=== PATIENT | male | born 1940 | race Caucasian/White ===

== ENCOUNTER 2020-08-19 11:09 | Observation (INO) | payer OTHER, SELFPAY ==
[2020-08-19] VITALS (14 sets, daily range): BP systolic 84–142; BP diastolic 49–87; PULSE 65–103; RESP 18–24; TEMP 36.2–38.8; O2SAT 95–99; BMI 21.2
--- NOTE | ~2020-08-19 | XR_ITS ---
EXAMINATION: XR chest 1V portable DATE: 08/19/2020 12:48 INDICATION: One week of fever and weakness. TECHNIQUE: frontal view of the chest was obtained. COMPARISON: None FINDINGS: There are few bilateral scattered calcified pulmonary nodules consistent with old granulomatous disea se. Mild reticular opacities at the bilateral lung bases. No pleural effusion or pneumothorax. Cardia c mediastinal silhouette is within normal limits for AP technique. Moderate to severe degenerative sk eletal changes in the spine and at both shoulders. IMPRESSION: 1. Mild reticular opacities at the bilateral lung bases which could represent atelectasis, mild pulmo nary edema or pneumonia. Reviewed, dictated and finalized at location A. PAPER WRITER IMPRESSION: 1. Mild reticular opacities at the bilateral lung bases which could represent a telectasis, mild pulmonary edema or pneumonia.
--- NOTE | 2020-08-19 11:21 | ECG_ITS ---
Measurements Intervals [place] Rate: 75 P: 64 GA: 140 QRS: 8 QRSD: 101 T: 33 QT: 388 QTc: 435 Interpretive Statements SINUS RHYTHM BASELINE ARTIFACT- I, II, AVR, AVF, V3-V4 NORMAL ECG Electronically Signed On 08-19-2020 13:47:12 NOTE TELLER by Perry Garcia D.O.
[2020-08-19 11:33] LABS: Basophils Percent Auto 0.1 % (0.2-1.2); Hematocrit 41.8 % (42.0-52.0); Hemoglobin 14.2 g/dL (14.0-18.0); Immature Granulocyte Absolute 0.05 K/mm3 (0.00-0.031); Immature Granulocyte Percent A 0.5 % (0-0.5); Lymphocytes Absolute Auto 1.49 K/mm3 (0.9-3.2); Lymphocytes Percent Auto 15.8 % (18.3-44.2); Mean Corpuscular Volume 94.1 fl (80-100); Mean Platelet Volume 10.8 fl (7.4-10.4); Monocytes Absolute Auto 0.5 K/mm3 (0.1-0.6); Monocytes Percent Auto 5.2 % (2.6-8.5); Neutrophils Absolute Auto 7.4 K/mm3 (1.3-6.7); Neutrophils Percent Auto 78.4 % (45.5-73.1); Platelet Count Result 267 k/mm3 (150-375); Red Blood Count 4.44 M/mm3 (4.6-6.20); Red Cell Distribution Width 12.9 % (11.5-14.5); White Blood Count 9.4 K/mm3 (4.5-10.0)
[2020-08-19 11:47] LABS: Alanine Aminotransferase 30 U/L (4-50); Albumin Level 3.7 g/dL (3.5-5.1); Alkaline Phosphatase 73 U/L (38-126); Anion Gap 10 mmol/L (8-16); Aspartate Amino Transferase 50 U/L (17-59); Bilirubin,Total 0.8 mg/dL (0.2-1.3); Blood Urea Nitrogen 19 mg/dL (9-20); Calcium 8.4 mg/dL (8.4-10.2); Carbon Dioxide 27 mmol/L (22-30); Chloride 95 mmol/L (98-107); Estimated CRCL calculation 52 ml/min; Estimated Glomerular Filt Rate > 60; Glucose 109 mg/dL (75-110); Potassium 4.1 mmol/L (3.4-5.0); Sodium 132 mmol/L (137-145)
[2020-08-19] MEDS: SODIUM CHLORIDE 0.9% IV 1,000 ML 999 ML IV CONT (13:09)
--- NOTE | 2020-08-19 13:18 | PC.NURSE ---
Patient's POA updated by phone at this time. Patient gave permission for this RN to speak with her and inform her of current situation.
[2020-08-19 13:26] LABS: NT Pro B Type Natriuretic Pept 405 PG/ML (5-100)
--- NOTE | 2020-08-19 14:50 | ED.WEAKNESS ---
HPI - Weakness General Chief complaint: Weakness Stated complaint: weakness x5 days, COVID PUI Time Seen by Provider: 08/19/20 12:03 History of Present Illness HPI Narrative: Patient is an 80-year-old male who presents ER with weakness and fatigue. Worsening over the last week. Started having fevers over the last couple days. Yesterday he went to receive a Covid test. No known Covid contacts. Unsure how he became ill. Denies runny nose/sore throat/productive cough. No exertional dyspnea. No alleviating factors. Lives at home by himself. Reports last night when he got out of bed he became very dizzy and lightheaded. Related Data Allergies Allergy/AdvReac Type Severity Reaction Status Date / Time No Known Allergies Allergy Mild Verified 08/19/20 11:18 Review of Systems Review of Systems: All systems reviewed & are unremarkable except as noted in HPI and below Constitutional: Constitutional: Reports chills, Reports fatigue, Reports fever(s) and Reports weakness ENT: Denies nasal congestion and Denies sore throat Cardiovascular: Cardiovascular: Denies chest pain and Denies radiating jaw, neck or arm pain Respiratory: Respiratory: Denies cough, Denies dyspnea and Denies wheezing Gastrointestinal: Gastrointestinal: Denies abdominal pain, Denies nausea and Denies vomiting Neurologic: Reports dizziness, Denies syncope, Denies focal weakness and Denies numbness PMFSH Past Medical History Medical History (Updated 08/21/20 @ 03:15 by Chuy Reynolds MD) Anxiety disorder, unspecified Chronic kidney disease (CKD), stage III (moderate) Diverticulosis of large intestine without perforation or abscess Essential (primary) hypertension Herpes zoster without complication Hyperlipidemia LDL goal <100 Insomnia Surgical History Surgical History H/O hernia repair Family History Family History Mother Family history of Alzheimer's disease Father Family history of renal cell carcinoma Acute myocardial infarction Social History Social History (Updated 08/19/20 @ 23:24 by Regina Dow DO) Social History: Lives independently Smoking status: Never smoker Second hand tobacco smoke exposure: No Smoking end date: 01/01/07 Alcohol intake: never Substance use: never Living arrangements: alone Occupation/Education: retired Additional occupation/education comments: From [employer] Gender identity (if verbalized by the patient): Male Sexual Orientation (if Verbalized by the Patient): Straight or Heterosexual Spiritual care concerns: No Exam Narrative: Exam Narrative: GENERAL: Well-appearing, well-nourished, and in no acute distress. HEAD: Normocephalic, atraumatic. CHEST: Clear to auscultation. No respiratory distress. HEART: Regular rate and rhythm. Normal peripheral pulses. ABDOMEN: Soft, nontender, nondistended. EXTREMITIES: Normal range of motion. No edema. SKIN: Warm, dry, no rash. NEURO: Alert and oriented x3. PSYCH: Normal mood and affect. Course Vital Signs Vital signs: Vital Signs Temperature 99.0 F 08/19/20 11:11 Pulse Rate 75 08/19/20 11:11 Respiratory Rate 24 H 08/19/20 11:11 Pulse Oximetry 98 08/19/20 11:11 Temperature 98.4 F 08/20/20 12:00 Pulse Rate 67 08/20/20 12:00 Respiratory Rate 20 08/20/20 12:00 Blood Pressure 105/47 L 08/20/20 12:00 Pulse Oximetry 94 08/20/20 12:00 MDM - Weakness Lab Data Result diagrams: 08/20/20 06:27 08/20/20 06:27 Labs: Lab Results 08/19/20 08/19/20 08/19/20 Range/Units 11:24 11:24 11:24 WBC 9.4 (4.5-10.0) K/mm3 RBC 4.44 L (4.6-6.20) M/mm3 Hgb 14.2 (14.0-18.0) g/dL Hct 41.8 L (42.0-52.0) % MCV 94.1 (80-100) fl MCH 32.0 (26-34) pg MCHC 34.0 (32-36) g/dl RDW 12.9 (11.5-14.5) % Plt Coun
[2020-08-19] MEDS: SODIUM CHLORIDE 0.9% IV 500 ML 999 ML IV CONT (15:27)
--- NOTE | 2020-08-19 18:02 | PC.NURSE ---
This patient, Rashel Polk, was admitted to [facility] Surg Room 314-01. Patient/family oriented to hospital policies and general routines including ID bracelet, bed and alarms, visiting hours, pain management, procedures, bathroom and other care routines, personal items, smoking policy, room service/diet, and visiting hours. Information on how to activate the Rapid Response Team has been discussed. Patient/Family are encouraged to report perceived risks to care and to ask questions if they do not understand what they are told or what they should do.
--- NOTE | 2020-08-19 20:42 | PM.IMHP ---
H&P: HPI History of Present Illness Date/Time: 08/19/20 20:42 Chief complaint: dehydration, COVID PUI, orthostasis Narrative: Rashel Polk is a 80 year old male with past medical history of hypertension, hyperlipidemia, hypothyroidism, insomnia, osteoarthritis presents the ED with complaints of fatigue. Symptom onset was a week ago with gradual progression. He started developing fevers a few days ago with rigors and chills, and now cough with sputum production. Patient had COVID test 08/18/2020 and does not know result. He is very independent, lives alone. He states he has been constipated over last couple days since he has not been eating much. He has nocturia which is regular for him. He denies any skin lesions. He has no sick contacts. No recent travels. Denies history of pneumonias. He did not take anything for his symptoms. Smoked cigarettes a little bit as a teenager many years ago. In the ED: Chest x-ray showed mild reticular opacities bibasilar atelectasis versus pneumonia. EKG showed normal sinus rhythm rate 75. Patient was little tachypneic otherwise vitals stable. Patient admitted to observation for pneumonia. Review of Systems Review of Systems: Narrative: Constitutional: Endorses fevers, chills, rigors. ENT/Mouth: No Hearing Changes, No Ear Pain, No Sinus Pain, No Hoarseness, No sore throat, No Rhinorrhea, No Swallowing Difficulty. Endorses nasal congestion Eyes: No Eye Pain, No Redness, No Vision Changes Cardiovascular: No Chest Pain, No Palpitations, No Dyspnea on Exertion, No Orthopnea, No Claudication, No Edema Respiratory: No Cough, No Sputum, No Wheezing, No Shortness of Breath Gastrointestinal: No Nausea, No Vomiting, No Diarrhea, No Abdominal Pain, No Heartburn, No Hematochezia, No Melena. Endorses constipation Genitourinary: No Dysuria, No Hematuria, No Urinary Incontinence. Endorses chronic nocturia. Musculoskeletal: No Arthralgias, No Myalgias, No Joint Swelling, No Joint Stiffness, No Back Pain Skin: No Skin Lesions, No Pruritis, No Hair Changes Neuro: No Weakness, No Numbness, No Paresthesias, No Loss of Consciousness, No Syncope, No Dizziness, No Headache Psych: No Anxiety/Panic, No Depression, endorses insomnia. Heme: No Bruising, No Bleeding Lymph: No Adenopathy Endocrine: No Polyuria, No Polydipsia, No Temperature Intolerance PMF Past Medical History Medical History (Updated 08/19/20 @ 23:24 by Regina Dow DO) Anxiety disorder, unspecified Chronic kidney disease (CKD), stage III (moderate) Diverticulosis of large intestine without perforation or abscess Essential (primary) hypertension Herpes zoster without complication Hyperlipidemia LDL goal <100 Insomnia Surgical History Surgical History H/O hernia repair Family History Family History Mother Family history of Alzheimer's disease Father Family history of renal cell carcinoma Acute myocardial infarction Social History Social History (Updated 08/19/20 @ 23:24 by Regina Dow DO) Social History: Lives independently Smoking status: Never smoker Second hand tobacco smoke exposure: No Smoking end date: 09/08/06 Alcohol intake: never Substance use: never Living arrangements: alone Occupation/Education: retired Additional occupation/education comments: From [employer] Gender identity (if verbalized by the patient): Male Sexual Orientation (if Verbalized by the Patient): Straight or Heterosexual Spiritual care concerns: No Meds Home Medications and Allergies Home Medications Medication Instructions Recorded Confirmed Type amlodipine 10 mg tablet 10 mg PO DAILY #90 tablet 10/19/19 08/19/20 Rx simvastatin 20 mg tablet 20 mg PO DAILY #90 tablet 02/23/20 08/19/20 Rx metoprolol tartrate 25 mg tablet 25 mg PO BID #180 tablet 03/29/20
[2020-08-19] MEDS: SODIUM CHLORIDE 0.9% IV 1,000 ML 125 ML IV CONT (21:11)
[2020-08-20] VITALS: BP 161/70; PULSE 93; RESP 20; TEMP 36.9; O2SAT 96
[2020-08-20 04:00] VITALS: BP 137/60; PULSE 81; RESP 18; TEMP 37.1; O2SAT 95
[2020-08-20 06:38] LABS: Basophils Percent Auto 0.1 % (0.2-1.2); Hematocrit 36.9 % (42.0-52.0); Hemoglobin 12.7 g/dL (14.0-18.0); Immature Granulocyte Absolute 0.04 K/mm3 (0.00-0.031); Immature Granulocyte Percent A 0.5 % (0-0.5); Lymphocytes Absolute Auto 1.04 K/mm3 (0.9-3.2); Lymphocytes Percent Auto 12.4 % (18.3-44.2); Mean Corpuscular HGB Conc 34.4 g/dl (32-36); Mean Corpuscular Hemoglobin 32.5 pg (26-34); Mean Corpuscular Volume 94.4 fl (80-100); Mean Platelet Volume 10.3 fl (7.4-10.4); Monocytes Absolute Auto 0.4 K/mm3 (0.1-0.6); Monocytes Percent Auto 4.4 % (2.6-8.5); Neutrophils Absolute Auto 6.9 K/mm3 (1.3-6.7); Neutrophils Percent Auto 82.6 % (45.5-73.1); Platelet Count Result 304 k/mm3 (150-375); Red Blood Count 3.91 M/mm3 (4.6-6.20); Red Cell Distribution Width 12.9 % (11.5-14.5); White Blood Count 8.4 K/mm3 (4.5-10.0)
[2020-08-20 07:01] LABS: Anion Gap 8 mmol/L (8-16); Blood Urea Nitrogen 14 mg/dL (9-20); Calcium 7.8 mg/dL (8.4-10.2); Carbon Dioxide 25 mmol/L (22-30); Chloride 100 mmol/L (98-107); Estimated CRCL calculation 63 ml/min; Estimated Glomerular Filt Rate > 60; Glucose 100 mg/dL (75-110); Magnesium 2.1 mg/dL (1.6-2.3); Potassium 3.8 mmol/L (3.4-5.0); Sodium 133 mmol/L (137-145)
[2020-08-20] MEDS: LEVOTHYROXINE SODIUM 50 MCG TABLET PO (07:46)
[2020-08-20 08:00] VITALS: BP 103/48; PULSE 80; RESP 16; TEMP 37.2; O2SAT 95
[2020-08-20] MEDS: SIMVASTATIN 20 MG TABLET PO (09:13)
[2020-08-20] MEDS: MELOXICAM 7.5 MG TABLET 15 MG PO (09:13)
[2020-08-20] MEDS: amLODIPine BESYLATE 5 MG TABLET 10 MG PO (09:13)
[2020-08-20] MEDS: ENOXAPARIN 40 MG/0.4 ML SYRINGE SUB-Q (09:13)
[2020-08-20] MEDS: SODIUM CHLORIDE 0.9% IV 1,000 ML 125 ML IV CONT (09:19)
[2020-08-20 11:31] VITALS: PULSE 60
[2020-08-20] MEDS: METOPROLOL TARTRATE 25 MG TABLET PO (11:31)
[2020-08-20 12:00] VITALS: BP 105/47; PULSE 67; RESP 20; TEMP 36.9; O2SAT 94
[2020-08-20 13:43] LABS: Influenza Control Positive
--- NOTE | 2020-08-20 15:47 | PM.DS ---
DS: Admitting Diagnosis Admitting Diagnosis Admitting Diagnosis: dehydration, COVID PUI, orthostasis DS: Discharge Diagnosis Discharge Diagnosis (1) Pneumonia: Qualifiers: Pneumonia type: due to unspecified organism Code(s): J18.9 - Pneumonia, unspecified organism Status: Acute (2) Generalized weakness: Code(s): R53.1 - Weakness Status: Acute (3) Person under investigation for COVID-19: Code(s): Z20.828 - Contact with and (suspected) exposure to other viral communicable diseases Status: Acute (4) Hypertension: Code(s): I10 - Essential (primary) hypertension Status: Acute (5) Pneumonia due to COVID-19 virus: Code(s): U07.1 - COVID-19; J12.89 - Other viral pneumonia Status: Acute DS: Summary Hospital Course Hospital Course: Patient is an 80-year-old male who presented emergency room for weakness and fatigue worsening over the last week. He got a COVID-19 test through [facility] but on admission had not got the results yet. CXR showed mild PNA vs Edema. He was admitted due to dizziness and lightheadedness and given IV fluids overnight as well as IV antibiotics for presumed pneumonia. Pt was seen later the next day and states he is no longer dizzy, has no shortness of breath, and feels better. He would rather do this at home and be in his own bed. He required no o2 the entire time he was admitted. He was educated about the worrisome signs and symptoms to come back to the emergency room for was discharged stable condition. He does not need any antibiotics as he was confirmed positive at [facility] when he was swabbed 08/18/20. No Remdesivir or Decadron indicated since he does not require oxygen. He saw physical therapy and did well and was independent. Time Spent with Patient Time attestation: Total time spent providing and/or coordinating discharge services:34 min Time spent: Greater than 30 minutes Exam Narrative: Exam Narrative: General: Well developed well nourished patient in NAD HEENT: normocephalic Neck: supple Neuro: Alert and oriented x4 CV: Regular rate and rhythm Resp: Mild crackles at the bases Abd: Soft, non distended. No pain to palpation. Positive bowel sounds Extremities: No swelling, erythema, or pain to palpation. DS: Data Data Completed and Pending Labs on day of discharge: Labs from last 24 hours 08/20/20 08/20/20 08/20/20 13:16 06:27 06:27 WBC 8.4 RBC 3.91 L Hgb 12.7 L Hct 36.9 L MCV 94.4 MCH 32.5 MCHC 34.4 RDW 12.9 Plt Count 304 MPV 10.3 Immature Gran % (Auto) 0.5 Neut % (Auto) 82.6 H Lymph % (Auto) 12.4 L [place] % (Auto) 4.4 Eos % (Auto) 0.0 Baso % (Auto) 0.1 L Lymph # (Auto) 1.04 [place] # (Auto) 0.4 Eos # (Auto) 0.0 Baso # (Auto) 0.0 Abs Immat Gran (auto) 0.04 H Absolute Neuts (auto) 6.9 H Absolute Nucleated RBC 0.0 Nucleated RBC % 0.0 Sodium 133 L Potassium 3.8 Chloride 100 Carbon Dioxide 25 Anion Gap 8 BUN 14 D Creatinine 0.90 Estim Creat Clear Calc 63 Estimated GFR > 60 Glucose 100 Calcium 7.8 L Magnesium 2.1 Influenza Types A,B Ag Negative Discharge Plan Discharge Attending physician on discharge: Mirna Ozuna Discharging Clinician: Valery Ellington Patient Disposition: Home, Self-Care Activity: as tolerated Diet: regular Discharge Instructions: -Continue isolating yourself and the people you have been around while sick. According to the CDC recommendations, you should quarantine for at least 14 days since your symptoms first appeared. Once these 10 days are up AND you have no more symptoms AND you have not had a fever for 24 hours (without fever medication), you are able to discontinue your quarantine. -okay to take Tylenol for pain and fevers -follow-up with your primary care physician in 1-2 weeks -worrisome signs and symptoms to come back to emergency room f
== END 2020-08-20 16:50 | disposition home or self-care (01) ==
LOC: ANHED 16:36 → ANH3MEDSUR 17:06
PROVIDERS: Emergency Medicine; Student in an Organized Health Care Education/Training Program; Admitting Provider Family Medicine; Emergency Provider Emergency Medicine; PCP Internal Medicine; Visit Provider Physician Assistant
DX: U07.1 COVID-19 (principal); J12.89 Other viral pneumonia; R53.1 Weakness; I95.1 Orthostatic hypotension; E86.0 Dehydration; I12.9 Hypertensive chronic kidney disease with stage 1 through stage 4 chronic kidney disease, or unspecified chronic kidney disease; N18.30 Chronic kidney disease, stage 3 unspecified; E78.5 Hyperlipidemia, unspecified; F41.9 Anxiety disorder, unspecified; G47.00 Insomnia, unspecified
CPT/HCPCS: 36415; 71045; 80048; 80053; 83735; 83880; 85025; 87040; 87804; 93005; 96361; 96365; 96366; 96372; 96375; 97161; 99285; A9270; G0378; J0131; J0456; J0696; J1650; J7030; J7040

== ENCOUNTER → 2021-07-27 11:11 | Outpatient (CLI) | payer OTHER, SELFPAY ==
--- NOTE | ~2021-07-27 | XR_ITS ---
XR lumbar spine 2-3V DATE: 07/27/2021 11:36 INDICATION: Lower back pain 5 years. No trauma or injury. TECHNIQUE: AP, lateral, coned lateral lumbosacral views COMPARISON: 07/28/2015 lumbar spine FINDINGS: There is prominent degenerative spurring of the lower thoracic spine and lumbar spine with degenerative disc disease throughout the lumbar lordosis cervical spine, particular spurring at L5-S1 , moderately severe at the remaining lumbar levels. No fracture or bone destruction. The included lower thoracic and lumbar pedicles are intact. The sacroiliac joints are intact. Very severe osteoarthritic changes are noted at the hip joints, right greater than left. IMPRESSION: Prominent degenerative disc disease, most severe at L5-S1 Severe bilateral hip osteoarthritis, right greater than left Reviewed, dictated and finalized at location A. AND DIE INSPECTOR
--- NOTE | ~2021-07-27 | XR_ITS ---
XR hip BI wo pelvis DATE: 07/27/2021 11:36 INDICATION: Bilateral hip pain for 5 years. TECHNIQUE: AP and lateral views of each hip COMPARISON: 07/28/2015 left hip FINDINGS: There is very severe osteoarthritis of both hips, right worse than left, with virtual oblit eration of joint space, prominent spurring at some patchy sclerosis and cystic changes. No fracture or dislocation. The pubic symphysis and sacroiliac joints are intact. IMPRESSION: Severe bilateral hip osteoarthritis, right greater than left Reviewed, dictated and finalized at location A. RVISOR GRAPHITE
== END ==
PROVIDERS: PCP Internal Medicine; Visit Provider Internal Medicine
DX: M16.0 Bilateral primary osteoarthritis of hip (principal); M47.817 Spondylosis without myelopathy or radiculopathy, lumbosacral region; M40.56 Lordosis, unspecified, lumbar region
CPT/HCPCS: 72100; 73521

== ENCOUNTER 2022-07-29 10:09 | Outpatient (CLI) | payer OTHER, SELFPAY ==
[2022-07-29 18:44] LABS: Alanine Aminotransferase 27 U/L (6-50); Albumin Level 4.7 g/dL (3.5-5.1); Alkaline Phosphatase 79 U/L (38-126); Anion Gap 12 mmol/L (8-16); Aspartate Amino Transferase 37 U/L (17-59); Bilirubin,Total 0.7 mg/dL (0.2-1.3); Blood Urea Nitrogen 21 mg/dL (9-20); Calcium 9.9 mg/dL (8.4-10.2); Carbon Dioxide 30 mmol/L (22-30); Chloride 101 mmol/L (98-107); Cholesterol 138 mg/dL (0-200); Estimated Glomerular Filt Rate 58; Glucose 102 mg/dL (65-110); HDL Direct 35 mg/dL; Sodium 143 mmol/L (137-145); Triglycerides 90 mg/dL (<150)
[2022-07-29 18:48] LABS: Basophils Absolute Auto 0.1 K/mm3 (0.0-0.1); Basophils Percent Auto 0.7 % (0.2-1.2); Eosinophils Absolute Auto 0.4 K/mm3 (0-0.3); Eosinophils Percent Auto 4.1 % (0-4.4); Hematocrit 47.5 % (42.0-52.0); Hemoglobin 15.5 g/dL (14.0-18.0); Immature Granulocyte Absolute 0.02 K/mm3 (0.00-0.031); Immature Granulocyte Percent A 0.2 % (0-0.5); Lymphocytes Absolute Auto 2.36 K/mm3 (0.9-3.2); Lymphocytes Percent Auto 26.9 % (18.3-44.2); Mean Corpuscular HGB Conc 32.6 g/dl (32-36); Mean Corpuscular Hemoglobin 31.6 pg (26-34); Mean Corpuscular Volume 96.7 fl (80-100); Mean Platelet Volume 11.9 fl (7.4-10.4); Monocytes Absolute Auto 0.8 K/mm3 (0.1-0.6); Monocytes Percent Auto 9.5 % (2.6-8.5); Neutrophils Absolute Auto 5.2 K/mm3 (1.3-6.7); Neutrophils Percent Auto 58.6 % (45.5-73.1); Platelet Count Result 294 k/mm3 (150-375); Red Blood Count 4.91 M/mm3 (4.6-6.20); White Blood Count 8.8 K/mm3 (4.5-10.0)
[2022-07-29 19:37] LABS: LDL Cholesterol Direct 77 mg/dL
== END 2022-07-29 10:10 | disposition home or self-care (01) ==
LOC: ANHGOSHLAB 10:12
PROVIDERS: PCP Family Medicine; Visit Provider Family Medicine
DX: D64.9 Anemia, unspecified (principal); E78.5 Hyperlipidemia, unspecified; I10 Essential (primary) hypertension; Z13.29 Encounter for screening for other suspected endocrine disorder
CPT/HCPCS: 36415; 80053; 80061; 84443; 85025

== ENCOUNTER 2023-05-29 09:23 | Outpatient (CLI) | payer OTHER, SELFPAY ==
[2023-05-29 13:55] LABS: Basophils Percent Auto 0.4 % (0.2-1.2); Eosinophils Absolute Auto 0.4 K/mm3 (0-0.3); Eosinophils Percent Auto 4.4 % (0-4.4); Hematocrit 44.9 % (42.0-52.0); Hemoglobin 14.6 g/dL (14.0-18.0); Immature Granulocyte Absolute 0.02 K/mm3 (0.00-0.031); Immature Granulocyte Percent A 0.2 % (0-0.5); Lymphocytes Absolute Auto 2.41 K/mm3 (0.9-3.2); Lymphocytes Percent Auto 28.6 % (18.3-44.2); Mean Corpuscular HGB Conc 32.5 g/dl (32-36); Mean Corpuscular Hemoglobin 31.7 pg (26-34); Mean Corpuscular Volume 97.6 fl (80-100); Mean Platelet Volume 11.5 fl (7.4-10.4); Monocytes Absolute Auto 0.9 K/mm3 (0.1-0.6); Neutrophils Absolute Auto 4.7 K/mm3 (1.3-6.7); Neutrophils Percent Auto 55.4 % (45.5-73.1); Platelet Count Result 238 k/mm3 (150-375); Red Cell Distribution Width 13.8 % (11.5-14.5); White Blood Count 8.4 K/mm3 (4.5-10.0)
[2023-05-29 15:06] LABS: Alanine Aminotransferase 21 U/L (6-50); Albumin Level 4.4 g/dL (3.5-5.1); Alkaline Phosphatase 73 U/L (38-126); Anion Gap 6 mmol/L (8-16); Aspartate Amino Transferase 49 U/L (17-59); Blood Urea Nitrogen 19 mg/dL (9-20); Calcium 9.5 mg/dL (8.4-10.2); Carbon Dioxide 32 mmol/L (22-30); Chloride 102 mmol/L (98-107); Cholesterol 126 mg/dL (0-200); Estimated Glomerular Filt Rate 58; Glucose 83 mg/dL (65-110); HDL Direct 35 mg/dL; Potassium 4.7 mmol/L (3.4-5.0); Sodium 140 mmol/L (137-145); Triglycerides 85 mg/dL (<150)
[2023-05-29 15:17] LABS: LDL Cholesterol Direct 69 mg/dL
== END 2023-05-29 09:24 | disposition home or self-care (01) ==
PROVIDERS: PCP Family Medicine; Visit Provider Family Medicine
DX: R53.83 Other fatigue (principal); Z13.228 Encounter for screening for other metabolic disorders; E03.9 Hypothyroidism, unspecified; Z13.29 Encounter for screening for other suspected endocrine disorder; Z13.220 Encounter for screening for lipoid disorders
CPT/HCPCS: 36415; 80053; 80061; 84443; 85025

== ENCOUNTER 2023-08-05 07:07 | Day surgery (SDC) | payer OTHER, SELFPAY ==
[2023-07-29 14:57] VITALS: BMI 20.3
--- NOTE | ~2023-08-05 | XR_ITS ---
XR fluoroscopy no charge Indication: Bilateral L4-5, L5-S1 transforaminal injection TECHNIQUE: Fluoroscopy used during Bilateral L4-5, L5-S1 transforaminal injection performed by [ Teo Bocanegra MD] on 08/05/2023. 27 seconds of fluoroscopy with 13 fluoroscopic images captured. FINDINGS: Correlate with procedure note. IMPRESSION: Fluoroscopy used during Bilateral L4-5, L5-S1 transforaminal injection. Reviewed, dictated and finalized at location L. STICKER IMPRESSION: Fluoroscopy used during Bilateral L4-5, L5-S1 transforaminal inject ion.
--- NOTE | 2023-08-05 06:31 | WPDHPUPDATE1 ---
History and Physical Update Update Date/Time: 08/05/23 06:31 History and Physical has been reviewed, including an updated exam of the patient. There are NO changes in the patient's condition. Risks, benefits, and alternatives have been discussed and questions answered. Patient agrees to proceed with procedure.
[2023-08-05 07:36] VITALS: BP 149/71; PULSE 51; RESP 20; TEMP 36.1; O2SAT 100
--- NOTE | 2023-08-05 08:09 | W.PM.PROC2 ---
Procedure Note - Detailed Date of Procedure 08/05/23 Pre-op Diagnosis Lumbar Radiculopathy, lumbar spinal stenosis Post-op Diagnosis Same Procedure Performed Bilateral L4-5, L5-S1 transforaminal epidural steroid injection under fluoroscopic guidance with contrast control. Surgeon Teo Bocanegra MD Anesthesia Local Description of Procedure INFORMED CONSENT: Risks, benefits and alternatives to the procedure were discussed in detail with the patient who expressed explicit understanding and consent to proceed. Patient was informed verbally and in written form regarding the risks associated with the procedure including the low risk of serious infection, bleeding/bruising, allergic reaction, nerve or organ injury, paralysis, procedural site pain or discomfort, worsening pain and/or mobility, failure to treat and/or disfigurement. The patient expressed explicit understanding and consent to proceed. All materials required for the procedure were available prior to procedure start. Site and side was marked prior to procedure and confirmed in the presence of the patient. PROCEDURE IN DETAIL: The patient was brought to the procedural suite and placed in the prone position. Patient was made comfortable with use of pillows under the head/chest, hips and ankles. Skin overlying the injection site was prepared broadly with ChloraPrep applicator and draped in a sterile manner. Aseptic technique was employed throughout. The endplates of the vertebral body at the site of interest were aligned in the AP view. Ipsilateral oblique angulation was utilized to better visualize the neuroforamen of interest. Local anesthesia was established by infiltration with approximately 5 mL of 2% lidocaine via a 1-1/2 inch 27-gauge needle. A 22-gauge 3.5 inch Dileep (pencil point) spinal needle was advanced until the needle approached the 6 o'clock position on the pedicle just superior to the exiting nerve root. on the Right at L4-5. Lateral view was utilized to confirm appropriate position of the needle tip within the superior and posterior portion of the respective foramen. In an AP view, 1 mL of Omnipaque 300 contrast medium was injected after negative aspiration for CSF, blood or other bodily fluid, showing appropriate neurogram without evidence of intravascular or intrathecal spread of contrast. Digital subtraction imaging was used with an additional 1ml of the same contrast medium to confirm absence of intravascular contrast spread. A 1mL solution containing 3 mg of betamethasone was injected after negative repeat aspiration. Appropriate spread of the injectate was confirmed with washout of previously injected contrast. No parasthesias were elicited. Needle was removed completely intact without difficulty. The same exact procedure was repeated for all remaining levels on the ipsilateral side, right L5-S1 neuroforamen, modified as necessary to accommodate for the new target location with identical findings and results and no evidence of complication. The same exact procedure was repeated for all remaining levels on the contralateral side, left L4-5, L5-S1 neuroforamen, modified as necessary to accommodate for the new target location with identical findings and results and no evidence of complication. Images were saved and documented in the patient chart. Patient's skin was cleaned and sterile bandage applied. The patient tolerated the procedure well. The patient was transported to the recovery area in stable condition where they were observed for an appropriate amount of time prior to discharge, without evidence of complication. The patient was instructed to avoid excessive activity for the next 48 hours, including climbing and frequent use of stairs. Showers only for 48 hours. They were instructed not to drive or operate heavy machinery for 24 hours. They are to monitor for severe headaches, fevers, chills, night sweats, erythema/swelling at the site or any other signs of infection, bleedi
[2023-08-05 08:20] VITALS: BP 188/88; PULSE 77; RESP 11; O2SAT 99
[2023-08-05] MEDS: LIDOCAINE HCL 1% PF INJ 5 ML VIAL INFILTRATE (08:22)
[2023-08-05 08:25] VITALS: BP 166/72; PULSE 73; RESP 22; O2SAT 99
[2023-08-05 08:30] VITALS: BP 155/73; PULSE 71; RESP 15; O2SAT 99
[2023-08-05] MEDS: BETAMETHASONE SODIUM PHOSPHATE PF INJ 6 MG/ML VIAL 12 MG INFILTRATE (08:30)
[2023-08-05] MEDS: LIDOCAINE HCL 2% PF INJ 5 ML VIAL INFILTRATE (08:30)
[2023-08-05 08:38] VITALS: BP 125/60; PULSE 54; RESP 16; O2SAT 100
== END 2023-08-05 09:01 | disposition home or self-care (01) ==
LOC: ASC 07:09
PROVIDERS: PCP Family Medicine; Visit Provider Anesthesiology Pain Medicine
PROC: (CPT 64483; principal; 2023-08-05 08:15)
DX: M54.16 Radiculopathy, lumbar region (principal); M48.061 Spinal stenosis, lumbar region without neurogenic claudication
CPT/HCPCS: 64483; 64484; 99199; Q5114

== ENCOUNTER 2024-05-25 10:42 | Outpatient (CLI) | payer OTHER, SELFPAY ==
[2024-05-25 14:26] LABS: Alanine Aminotransferase 37 U/L (6-50); Alkaline Phosphatase 74 U/L (38-126); Anion Gap 9 mmol/L (4-12); Aspartate Amino Transferase 91 U/L (17-59); Bilirubin,Total 0.7 mg/dL (0.2-1.3); Blood Urea Nitrogen 17 mg/dL (9-20); Calcium 9.1 mg/dL (8.4-10.2); Carbon Dioxide 29 mmol/L (22-30); Chloride 101 mmol/L (98-107); Cholesterol 115 mg/dL (0-200); Estimated Glomerular Filt Rate > 60; Glucose 66 mg/dL (65-110); HDL Direct 31 mg/dL; Potassium 4.2 mmol/L (3.4-5.0); Sodium 139 mmol/L (137-145); Triglycerides 127 mg/dL (<150)
[2024-05-25 14:37] LABS: LDL Cholesterol Direct 56 mg/dL
[2024-05-25 14:54] LABS: Free T4 Free Thyroxine 0.89 ng/mL (0.78-2.19)
== END 2024-05-25 10:43 | disposition home or self-care (01) ==
LOC: ANHGOSHLAB 10:43
PROVIDERS: PCP Family Medicine; Visit Provider Family Medicine
DX: E78.5 Hyperlipidemia, unspecified (principal); E03.9 Hypothyroidism, unspecified; Z13.228 Encounter for screening for other metabolic disorders
CPT/HCPCS: 36415; 80053; 80061; 84439; 84443

== ENCOUNTER 2025-05-04 13:12 | Outpatient (CLI) | payer MEDICARE, SELFPAY ==
--- OUTSIDE RECORDS SUMMARY | 2025-05-04 13:24 | XMS_ITS | Clinical Summary ---
Author Organization [facility] Address [address] [place] [id number] Care Team Providers Care Garment Manufacturer Name Role Phone Teo Grimaldo MD Primary Care Provider [phone] Allergies No known active allergies Medications metoprolol tartrate 25 MG tablet Take 25 mg by mouth 2 (two) times daily. 09/25/2021 Active amLODIPine 10 MG tablet Take 10 mg by mouth daily. 10/02/2021 Active simvastatin 20 MG tablet Take 20 mg by mouth daily. 09/26/2021 Active levothyroxine 50 MCG tablet 07/16/2021 Active zolpidem 5 MG tablet 08/23/2021 Active Active Problems No known active problems Family History Medical History Relation Comments No Known Problems Brother Heart Attack Father No Known Problems Maternal Aunt No Known Problems Maternal Grandfather No Known Problems Maternal Grandmother No Known Problems Maternal Uncle Alzheimers Mother No Known Problems Paternal Aunt No Known Problems Paternal Grandfather No Known Problems Paternal Grandmother No Known Problems Paternal Uncle No Known Problems Sister Relation Status Comments Brother Father Maternal Aunt Maternal Grandfather Maternal Grandmother Maternal Uncle Mother Paternal Aunt Paternal Grandfather Paternal Grandmother Paternal Uncle Sister Social History Tobacco Use Types Packs/Day Years Used Date Smoking Tobacco: Never Smokeless Tobacco: Never Tobacco Cessation:Counseling Given: No Alcohol Use Standard Drinks/Week Comments Not Currently 0 (1 standard drink = 0.6 oz pur e alcohol) PHQ-2 Answer Date Recorded PHQ-2 Score - If the patient scores above 3, please move on to questions 3-9 0 10/16/2021 Education Answer Date Recorded What is the highest level of school you have completed or the highest degree you have received? 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 Not on file Not on file No t on file Last Filed Vital Signs Vital Sign Reading Time Taken Comments Blood Pressure 172/88 01/21/2022 2:26 PM CDT Pulse 98 01/21/2022 1:43 PM CDT Temperature 36.7 C (98 F) 01/21/2022 1:43 PM CDT Respiratory Rate 20 01/21/2022 1:43 PM CDT Oxygen Saturation 98% 01/21/2022 1:43 PM CDT Inhaled Oxygen Concentration - - Weight 76.9 kg (169 lb 9.6 oz) 01/21/2022 1:43 P M CDT Height 190.5 cm (6' 3) 01/21/2022 1:43 PM CDT Body Mass Index 21.2 01/21/2022 1:43 PM CDT Plan of Treatment Health Maintenance Due Date Last Done Comments DTaP, Tdap and Td Vaccines ( 1 - Tdap) 1959 Pneumococcal Vaccine: 50+ Years (1 of 1 - PCV) 1990 Annual Medicare Wellness Visit 2005 RSV Immunization or 60+ Years (1 - 1-dose 75+ series) 2015 Zoster Vaccines (2 of 2) 02/14/2019 12/20/2018 COVID-19 Vaccine (3 - 2023-2 5 season) 2024 07/05/2021, 11/13/2020 Meningococcal B Vaccine Aged Out No l onger eligible based on patient's age to complete this topic Meningococcal Vaccine Aged Out No mary mark eligible based on patient's age to complete this topic RSV Immunizations Under 20 Months Aged Out No longer eligible b ased on patient's age to complete this topic Insurance [employer] Care Teams Garment Manufacturer Relationship Specialty Start Date End Date Teo Grimaldo MD [address] [place] [id number] PCP - General INTERNAL MEDICINE 09/24/21
[2025-05-04 13:52] LABS: Hematocrit 42.9 % (42.0-52.0); Hemoglobin 14.0 g/dL (14.0-18.0); Immature Granulocyte Percent A 0.4 % (0-0.5); Lymphocytes Absolute Auto 2.32 K/mm3 (0.9-3.2); Mean Corpuscular HGB Conc 32.6 g/dl (32-36); Mean Corpuscular Hemoglobin 32.1 pg (26-34); Mean Corpuscular Volume 98.4 fl (80-100); Nucleated Red Blood Cells Absolute Auto 0.000 K/mm3 (0.0-0.012); Nucleated Red Blood Cells Perc 0.0 % (0.0-0.2); Platelet Count Result 285 k/mm3 (150-375); Red Blood Count 4.36 M/mm3 (4.6-6.20); White Blood Count 7.6 K/mm3 (4.5-10.0)
[2025-05-04 14:22] LABS: Alanine Aminotransferase 28 U/L (6-50); Albumin Level 4.5 g/dL (3.5-5.1); Alkaline Phosphatase 71 U/L (38-126); Anion Gap 9 mmol/L (4-12); Aspartate Amino Transferase 37 U/L (17-59); Bilirubin,Total 0.6 mg/dL (0.2-1.3); Blood Urea Nitrogen 18 mg/dL (9-20); Calcium 9.6 mg/dL (8.4-10.2); Carbon Dioxide 28 mmol/L (22-30); Chloride 102 mmol/L (98-107); Estimated Glomerular Filt Rate > 60; Glucose 91 mg/dL (65-110); Magnesium 2.1 mg/dL (1.6-2.3); Potassium 4.7 mmol/L (3.4-5.0); Sodium 139 mmol/L (137-145); Total Protein 8.0 g/dL (6.3-8.2)
[2025-05-04 15:11] LABS: Thyroid Stimulating Hormone 4.630 uIU/mL (0.465-4.680)
[2025-05-05 11:09] LABS: Vitamin B12 597 pg/mL (232-1245)
== END 2025-05-04 13:13 | disposition home or self-care (01) ==
PROVIDERS: PCP Family Medicine; Visit Provider Family Medicine
DX: N52.9 Male erectile dysfunction, unspecified (principal); I10 Essential (primary) hypertension; E78.5 Hyperlipidemia, unspecified; E03.9 Hypothyroidism, unspecified; N18.31 Chronic kidney disease, stage 3a; F51.01 Primary insomnia; Z87.891 Personal history of nicotine dependence; M47.817 Spondylosis without myelopathy or radiculopathy, lumbosacral region; T39.395A Adverse effect of other nonsteroidal anti-inflammatory drugs [NSAID], initial encounter; F41.9 Anxiety disorder, unspecified
CPT/HCPCS: 36415; 80053; 82306; 82607; 83735; 84443; 85025